=== PATIENT | female | born 1995 | race Caucasian/White ===

== ENCOUNTER → 2019-06-27 | Outpatient (REF) | payer OTHER | LOC: M LAB REF 10:36 | PROVIDERS: ATTEND Physician Assistant | DX: J02.9 Acute pharyngitis, unspecified (principal) ==

== ENCOUNTER → 2019-08-12 | Outpatient (CLI) | payer OTHER ==
[2019-08-12 10:55] LABS: BASO % 0.8 % (0.0-1.0); EOS # 0.2 10^3/uL (0.0-0.5); EOS % 3.9 % (0.0-3.0); HEMATOCRIT 42.2 % (36.0-47.0); HEMOGLOBIN 13.9 g/dl (12.0-15.5); LYMPH # 2.1 10^3/uL (1.5-5.0); LYMPH % 41.9 % (24.0-44.0); MEAN CORPUSCULAR HEMOGLOBIN 29.5 pg (27.0-33.0); MEAN CORPUSCULAR HGB CONC 32.9 g/dl (32.0-36.5); MEAN CORPUSCULAR VOLUME 89.6 fl (80.0-96.0); MONO # 0.4 10^3/uL (0.0-0.8); MONO % 8.3 % (0.0-5.0); NEUTROPHILS # 2.2 10^3/uL (1.5-8.5); NEUTROPHILS % 44.9 % (36.0-66.0); PLATELET COUNT, AUTOMATED 215 10^3/uL (150-450); RED BLOOD COUNT 4.71 10^6/uL (4.00-5.40); WHITE BLOOD COUNT 4.9 10^3/uL (4.0-10.0)
[2019-08-12 11:32] LABS: ALBUMIN 4.2 GM/DL (3.2-5.2); ALT/SGPT 19 U/L (12-78); BILIRUBIN,TOTAL 0.6 MG/DL (0.2-1.0); BLOOD UREA NITROGEN 11 MG/DL (7-18); CALCIUM LEVEL 9.3 MG/DL (8.5-10.1); CARBON DIOXIDE LEVEL 29 MEQ/L (21-32); CHLORIDE LEVEL 109 MEQ/L (98-107); CREATININE FOR GFR 0.86 MG/DL (0.55-1.30); GLOMERULAR FILTRATION RATE > 60.0 (>60); GLUCOSE, FASTING 84 MG/DL (70-100); POTASSIUM SERUM 4.4 MEQ/L (3.5-5.1); SODIUM LEVEL 141 MEQ/L (136-145); TOTAL PROTEIN 7.1 GM/DL (6.4-8.2)
[2019-08-12 11:40] LABS: TOTAL 25(OH) VITAMIN D 23.9 NG/ML (30.0-100.0)
== END ==
LOC: M LAB 10:00
PROVIDERS: ATTEND Physician Assistant
DX: Z13.29 Encounter for screening for other suspected endocrine disorder (principal)

== ENCOUNTER → 2020-01-20 | Outpatient (CLI) | payer OTHER ==
[2020-01-20 11:36] LABS: BASO % 0.2 % (0.0-1.0); EOS # 0.1 10^3/uL (0.0-0.5); EOS % 1.3 % (0.0-3.0); HEMATOCRIT 38.6 % (36.0-47.0); HEMOGLOBIN 13.3 g/dl (12.0-15.5); LYMPH # 1.5 10^3/uL (1.5-5.0); LYMPH % 17.5 % (24.0-44.0); MEAN CORPUSCULAR HEMOGLOBIN 30.4 pg (27.0-33.0); MEAN CORPUSCULAR HGB CONC 34.5 g/dl (32.0-36.5); MEAN CORPUSCULAR VOLUME 88.3 fl (80.0-96.0); MONO # 0.5 10^3/uL (0.0-0.8); MONO % 6.1 % (0.0-5.0); NEUTROPHILS # 6.5 10^3/uL (1.5-8.5); NEUTROPHILS % 74.6 % (36.0-66.0); PLATELET COUNT, AUTOMATED 228 10^3/uL (150-450); RED BLOOD COUNT 4.37 10^6/uL (4.00-5.40); WHITE BLOOD COUNT 8.7 10^3/uL (4.0-10.0)
[2020-01-20 17:09] LABS: CHLAMYDIA DNA AMPLIFICATION NEGATIVE (NEGATIVE); GC DNA AMPLIFICATION NEGATIVE (NEGATIVE)
[2020-01-21 11:00] LABS: HIV 1&2 SCREEN CENTAUR NEGATIVE (NEGATIVE)
== END ==
LOC: M LAB 10:58
PROVIDERS: ATTEND Advanced Practice Midwife
DX: Z34.91 Encounter for supervision of normal pregnancy, unspecified, first trimester (principal)
CPT/HCPCS: 36415; 85025; 86762; 86780; 86803; 86850; 87086; 87340; 87389; 87491; 87591; G0463

== ENCOUNTER → 2020-03-24 | Outpatient (CLI) | payer OTHER ==
--- NOTE | 2020-03-24 12:27 | REP ---
REASON: anatomy. Multiple ultrasonographic images of the gravid uterus show a single living intrauterine gestation in the transverse head to maternal right position. Doppler interrogation of the heart shows a heart rate of 143 beats per minute. The placenta is anterior and not low lying. The cervix measures 3.6 cm in length and is closed. The subjective amniotic fluid volume is within normal limits. The anatomical structures seen to be within normal limits are as follows: Thalami, cavum septum pellucidum, cerebellum, cisterna magna, cerebral ventricles, upper lip, four-chamber heart, left ventricular outflow tract, stomach, cord insertion, three-vessel umbilical cord, kidneys, urinary bladder, spine, and upper and lower extremities. The right ventricular outflow tract was suboptimally visualized. The cord insertion was normal. BPD 4.6 cm = 19 weeks 3 days HC 16.7 cm = 19 weeks 3 days AC 14.0 cm = 19 weeks 3 days FL 3 cm = 19 weeks 2 days The estimated weight is 287 grams, which is at the 48th percentile for a 19 week 2 day gestational age. IMPRESSION: Single living intrauterine gestation, as described above, with an estimated gestational age of 19 weeks 2 days via composite criteria and estimated date of delivery of 08/16/2020 by today's exam. No anomalies were detected, however, I recommend a followup examination to optimally visualize the right ventricular outflow tract.
== END ==
LOC: M WHC 10:00
PROVIDERS: ATTEND Advanced Practice Midwife
DX: Z34.02 Encounter for supervision of normal first pregnancy, second trimester (principal); Z3A.19 19 weeks gestation of pregnancy

== ENCOUNTER → 2020-05-19 | Outpatient (CLI) | payer OTHER ==
[2020-05-19 17:42] LABS: BASO % 0.3 % (0.0-1.0); EOS # 0.2 10^3/uL (0.0-0.5); EOS % 1.2 % (0.0-3.0); HEMATOCRIT 37.1 % (36.0-47.0); HEMOGLOBIN 12.3 g/dl (12.0-15.5); LYMPH # 1.5 10^3/uL (1.5-5.0); LYMPH % 12.6 % (24.0-44.0); MEAN CORPUSCULAR HEMOGLOBIN 31.2 pg (27.0-33.0); MEAN CORPUSCULAR HGB CONC 33.2 g/dl (32.0-36.5); MEAN CORPUSCULAR VOLUME 94.2 fl (80.0-96.0); MONO # 0.8 10^3/uL (0.0-0.8); MONO % 6.6 % (0.0-5.0); NEUTROPHILS # 9.6 10^3/uL (1.5-8.5); NEUTROPHILS % 78.2 % (36.0-66.0); PLATELET COUNT, AUTOMATED 244 10^3/uL (150-450); RED BLOOD COUNT 3.94 10^6/uL (4.00-5.40); WHITE BLOOD COUNT 12.2 10^3/uL (4.0-10.0)
== END ==
LOC: M PLALAB 13:54
PROVIDERS: ATTEND Advanced Practice Midwife
DX: Z34.02 Encounter for supervision of normal first pregnancy, second trimester (principal)
CPT/HCPCS: 36415; 82950; 85025; 86850; 86900; 86901; G0463; J2790

== ENCOUNTER → 2020-06-09 | Outpatient (CLI) | payer OTHER ==
--- NOTE | 2020-06-19 10:23 | REP ---
OBSTETRIC SONOGRAPHY HISTORY: Supervision of . Follow-up anatomy. COMPARISON: 03/24/2020. FINDINGS: Scanning through the gravid uterus demonstrates a single live intrauterine gestation in a cephalic lie. heart rate is recorded at 136 beats per minute. Amniotic fluid is subjectively normal. MYRIAM is normal at 10.5 cm. An anterior grade 1 placenta is seen without evidence of previa. Three-vessel cord is noted. Closed cervical length measures 3.1 cm, viewed transabdominally. Right ventricular outflow tract view was achieved today albeit somewhat difficult to evaluate due to position. Placental cord insertion difficult to evaluate due to presentation. BIOMETRY CHART: BPD 7.6 cm 30 weeks 4 days Head circumference 28.1 cm 30 weeks 6 days Abdominal circumference 26.0 cm 30 weeks 1 day Femur length 5.8 cm 30 weeks 3 days Humeral length 5.3 cm 30 weeks 5 days AC/HC ratio 1.08 Normal Cephalic index 0.75 Normal Estimated weight 1555 grams, 3 pounds 6 ounces 39th percentile for 30 weeks 2 days IMPRESSION: Viable single intrauterine gestation at 30 weeks 4 days by todays composite sonographic criteria. Estimated date of delivery (JUAN CARLOS) by todays sonography 08/14/2020. MTDD
== END ==
LOC: M WHC 13:10
PROVIDERS: ATTEND Obstetrics & Gynecology
DX: Z36.2 Encounter for other antenatal screening follow-up (principal); Z3A.30 30 weeks gestation of pregnancy

== ENCOUNTER → 2020-07-18 | Outpatient (REF) | payer OTHER | LOC: M SFHCWAGY 16:53 | PROVIDERS: ATTEND Obstetrics & Gynecology | DX: Z3A.35 35 weeks gestation of pregnancy (principal) ==

== ENCOUNTER 2020-08-08 19:12 | Inpatient (IN) | payer OTHER ==
[~2020-08-08] VITALS: Ht 170.2 cm; Wt 82.0 kg
[2020-08-08 19:36] VITALS: BP 181/98
[2020-08-08 20:00] VITALS: BP 139/87
[2020-08-08] MEDS ORDERED: PENICILLIN G POTASSIUM IV 5 MU in D5W MINI-BAG PLUS 100 ML IV STA (20:04)
[2020-08-08] MEDS ORDERED: PROMETHAZINE INJ 25 MG/ML VIAL (J2550) IV ONE (20:15)
[2020-08-08] MEDS ORDERED: BUTORPHANOL 2 MG/ML INJ (J0595) IV ONE (20:15)
[2020-08-08 20:16] LABS: HEMATOCRIT 43.3 % (36.0-47.0); HEMOGLOBIN 14.6 g/dl (12.0-15.5); MEAN CORPUSCULAR HEMOGLOBIN 30.6 pg (27.0-33.0); MEAN CORPUSCULAR HGB CONC 33.7 g/dl (32.0-36.5); MEAN CORPUSCULAR VOLUME 90.8 fl (80.0-96.0); PLATELET COUNT, AUTOMATED 297 10^3/uL (150-450); RED BLOOD COUNT 4.77 10^6/uL (4.00-5.40); WHITE BLOOD COUNT 19.8 10^3/uL (4.0-10.0)
--- NOTE | 2020-08-08 20:22 | HPEPDOC ---
Obstetrical History & Physical General Date of Admission Aug 08, 2020 at 19:53 History of Present Illness 24 yo at 38 6/7 weeks by LMP c/w 9 week ultrasound presents with regular contractions for the last 3 hours. They increased in intensity. No loss of fluid. good movement. Chief Complaint: Contractions, term Information Provided By: Patient Age: 24 : 1 Term: 0 Care Care: None Dating Final EDC: Aug 16, 2020 Final EDC by: LMP, 1st trimester (US) Past Medical History Past Obstetrical History : Past Obstetrical History: Primgravida Past Medical History Medical History peptic ulcer disease Anxiety Surgery: Kinards teeth Family History Significant Family History: No pertinent family hx Social History Marital Status: Family situation: Spouse/partner home Psychosocial History: Anxiety * Smoker: non-smoker Allergies Coded Allergies: Augmentin (Verified Allergy, Mild, [place], 08/08/20) Buspirone (Verified Allergy, Mild, dizzy, 08/08/20) Physical Examination Physical Examination GENERAL: Alert and oriented times three. BREAST: . ABDOMEN: Gravid and non-tender to touch. FETUS: Is vertex (VTX) by sterile vaginal examination (SVE), fetus is vertex (VTX) by Norm. HEART RATE: Regular rate and rhythm. LUNGS: Clear to auscultation (CTA). EXTREMITIES: No edema. No clonus. Deep tendon reflexes (DTRs) + . Laboratory Data 24H LABS Laboratory Tests 2 08/08/20 19:59: Serology Scanned Report Hepatitis B Testing 08/08/20 20:00: CBC/BMP Pertinent Laboratoy Data Hepatitis B: Negative Hepatitis C: Negative Rapid Plasma Reagin: Immune Rubella: Immune Group B Streptococcus: Positive Vaginal Examination Dilation: 6 cm Effacement: 100% Station: -1 Cervical Consistency: Soft Cervical Position: Middle Presentation: Cephalic presentation Position: Vertex (occiput) Assessment Variability: Moderate Accelerations: Positive Decelerations: None Tocometer Contractions: Yes Frequency: regular Duration: greater than 60 seconds Strength: palpated as strong Assessment/Plan Assessment Pt is a 24-year-old (G)1 para (P)0 at 38+6 weeks by LMP c/w 9-week ultrasound presents to Labor and Delivery (L&D) in active labor. Plan Admit and orient. 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 Diet: regular. Group B Streptococcus (GBS) positive. Labs and intravenous (IV) per unit protocol. Counseled on Pitocin and induction of labor (IOL). Anticipate normal spontaneous delivery (). C-S as appropriate. ARIADNE GRIFFITH MD Aug 08, 2020 20:22
[2020-08-08] MEDS ORDERED: ACET-897 PO (21:01)
[2020-08-08] MEDS ORDERED: PRENTAB9 PO (21:01)
[2020-08-08] MEDS ORDERED: OXYTOCIN 30 UNITS IN 0.9% NaCl 500ML IV BAG (J2590) As Ordered ONE (22:47)
[2020-08-09] MEDS ORDERED: PENICILLIN G POTASSIUM IV 2.5 MU in IV 1 EA IV SCH (00:30)
[2020-08-09] MEDS ORDERED: DOCUSATE SODIUM 100MG CAPSULE PO PRN (01:15)
[2020-08-09] MEDS ORDERED: OXYTOCIN DRIP 30 UNITS in IV 1 EA IV ONE (01:15)
[2020-08-09] MEDS ORDERED: IBUPROFEN 600MG TAB PO PRN (01:15)
[2020-08-09] MEDS ORDERED: LIDOCAINE 1% MDV 20ML VIAL INFIL ONE (01:15)
[2020-08-09] MEDS ORDERED: METHYLERGONOVINE MALEATE 0.2 MG TAB PO PRN (01:15)
[2020-08-09] MEDS ORDERED: ONDANSETRON 4MG/2ML VIAL IV PRN (01:15)
[2020-08-09] MEDS ORDERED: MEASLES,MUMPS,RUBELLA VACCINE INJ (MMR-II) (90707) SC SCH (01:15)
[2020-08-09] MEDS ORDERED: RHOGAM 300 MCG (1500 IU) INJ (J2790) IM SCH (01:15)
[2020-08-09] MEDS ORDERED: BENZOCAINE 20% HEMORRHOIDAL OINTMENT 28GM TUBE TOP PRN (01:15)
[2020-08-09] MEDS ORDERED: ACETAMINOPHEN 500 MG TAB PO PRN (01:15)
--- NOTE | 2020-08-09 01:22 | DNPDOC ---
[facility] Delivery Note Delivery Note DATE OF DELIVERY: August 09, 2020 PREDELIVERY DIAGNOSIS: 38-6/7 weeks' gestation and labor. POST DELIVERY DIAGNOSIS: Delivered. PROCEDURE: Spontaneous vaginal delivery. TESTER WAFER SUBSTRATE: Dr. Ariadne Griffith MD ANESTHESIA: none. ESTIMATED BLOOD LOSS: 300 mL. FINDINGS: 7 pound 15 ounce male , Score 8/9, nuchal cord times 1. Velamentous cord insertion. DELIVERY SUMMARY: Patient is a 24-year-old 1 now para 2 who was admitted to labor. She received no augmentation. She had no anesthesia for delivery. After a 1 hour 25 minute second stage she had a spontaneous vaginal delivery. Midline episiotomy performed due due arrest of descent at a narrow introitus. There was also persistent bradycardia present. Nuchal cord x 1 delivered through. Infant handed to mother. Cord doubly clamped and cut. Placenta delivered spontaneously and appeared intact. Pt received IV Pitocin immediately after delivery of placenta. Second degree episiotomy repaired under local anesthesia in the usual fashion. Placenta sent to pathology for velamentous cord insertion. Sponge and needle counts correct. ARIADNE GRIFFITH MD Aug 09, 2020 01:22
[2020-08-09 03:00] VITALS: BP 137/83
[2020-08-09 06:00] VITALS: BP 130/64
[2020-08-09] MEDS: FLUoxetine 20 MG CAP PO SCH (09:05)
[2020-08-09] MEDS: LORATADINE 10 MG TAB PO SCH (09:05)
[2020-08-09] MEDS: PRENATAL VITAMINS CHEWABLE TABLET PO SCH (09:05)
[2020-08-09] MEDS: ACETAMINOPHEN TAB 650MG DOSE (2X325MG) PO PRN ×2 (09:08→19:39)
[2020-08-09 18:00] VITALS: BP 134/76
[2020-08-10] MEDS: IBUPROFEN 800 MG TAB PO PRN ×2 (07:36→17:23)
[2020-08-10 09:00] VITALS: BP 134/76
[2020-08-10] MEDS: PRENATAL VITAMINS CHEWABLE TABLET PO SCH (09:15)
[2020-08-10] MEDS: FLUoxetine 20 MG CAP PO SCH (09:15)
[2020-08-10] MEDS: LORATADINE 10 MG TAB PO SCH (09:15)
[2020-08-10 10:55] VITALS: BP 123/65
[2020-08-10 17:39] VITALS: BP 139/81
[2020-08-11 06:00] VITALS: BP 118/78
[2020-08-11] MEDS: LORATADINE 10 MG TAB PO SCH (08:08)
[2020-08-11] MEDS: FLUoxetine 20 MG CAP PO SCH (08:08)
[2020-08-11] MEDS: PRENATAL VITAMINS CHEWABLE TABLET PO SCH (08:08)
[2020-08-11] MEDS: IBUPROFEN 800 MG TAB PO PRN (08:08)
== END 2020-08-11 12:00 | disposition home or self-care (01) | DRG 807 ==
LOC: M LDO 19:12 → M LDI 19:53 → M OBS 08-09 02:57
PROVIDERS: ADMIT Specialist; ATTEND Specialist
PROC: 10E0XZZ Delivery of Products of Conception, External Approach (ICD-10-PCS; principal; 2020-08-09)
PROC: 0KQM0ZZ Repair Perineum Muscle, Open Approach (ICD-10-PCS; 2020-08-09)
PROC: 0W8NXZZ Division of Female Perineum, External Approach (ICD-10-PCS; 2020-08-09)
DX: O99.824 Streptococcus B carrier state complicating childbirth (principal); Z37.0 Single live birth; Z3A.38 38 weeks gestation of pregnancy; O76 Abnormality in fetal heart rate and rhythm complicating labor and delivery; O64.0XX0 Obstructed labor due to incomplete rotation of fetal head, not applicable or unspecified; O69.82X0 Labor and delivery complicated by other cord entanglement, without compression, not applicable or unspecified; O69.89X0 Labor and delivery complicated by other cord complications, not applicable or unspecified; O70.1 Second degree perineal laceration during delivery

== ENCOUNTER 2020-08-17 20:25 | Emergency (ER) | payer OTHER ==
[~2020-08-17] VITALS: Ht 170.2 cm; Wt 68.5 kg
[~2020-08-17 20:25] MED LIST: ACET-897 PO; PRENTAB9 PO
[2020-08-17] MEDS ORDERED: FLUO20CA22 (20:38)
[2020-08-17] MEDS ORDERED: NS 1,000 ML IV ONE (21:15)
[2020-08-17] MEDS ORDERED: ACETAMINOPHEN 500 MG TAB PO ONE (21:15)
[2020-08-17 21:40] LABS: BASO # 0.1 10^3/uL (0.0-0.2); BASO % 0.3 % (0.0-1.0); EOS # 0.1 10^3/uL (0.0-0.5); EOS % 0.5 % (0.0-3.0); HEMATOCRIT 43.2 % (36.0-47.0); HEMOGLOBIN 13.7 g/dl (12.0-15.5); LYMPH # 1.3 10^3/uL (1.5-5.0); LYMPH % 7.3 % (24.0-44.0); MEAN CORPUSCULAR HEMOGLOBIN 28.8 pg (27.0-33.0); MEAN CORPUSCULAR HGB CONC 31.7 g/dl (32.0-36.5); MEAN CORPUSCULAR VOLUME 90.9 fl (80.0-96.0); MONO # 0.9 10^3/uL (0.0-0.8); MONO % 5.1 % (0.0-5.0); NEUTROPHILS # 15.3 10^3/uL (1.5-8.5); NEUTROPHILS % 86.3 % (36.0-66.0); PLATELET COUNT, AUTOMATED 337 10^3/uL (150-450); RED BLOOD COUNT 4.75 10^6/uL (4.00-5.40); WHITE BLOOD COUNT 17.7 10^3/uL (4.0-10.0)
[2020-08-17 22:17] LABS: ALBUMIN 3.4 GM/DL (3.2-5.2); ALT/SGPT 33 U/L (12-78); AMYLASE 57 U/L (25-115); BILIRUBIN,DIRECT < 0.1 MG/DL (0.0-0.2); BILIRUBIN,TOTAL 0.3 MG/DL (0.2-1.0); BLOOD UREA NITROGEN 15 MG/DL (7-18); CALCIUM LEVEL 11.3 MG/DL (8.5-10.1); CARBON DIOXIDE LEVEL 28 MEQ/L (21-32); CHLORIDE LEVEL 102 MEQ/L (98-107); CREATININE FOR GFR 1.01 MG/DL (0.55-1.30); FREE T4 1.04 NG/DL (0.76-1.46); GLOMERULAR FILTRATION RATE > 60.0 (>60); GLUCOSE, FASTING 110 MG/DL (70-100); LIPASE 95 U/L (73-393); SODIUM LEVEL 137 MEQ/L (136-145); THYROID STIMULATING HORMONE 0.398 uIU/ML (0.358-3.740); TOTAL PROTEIN 7.5 GM/DL (6.4-8.2)
--- NOTE | 2020-08-17 22:17 | REPVR ---
PROCEDURE INFORMATION: Exam: US Nonobstetric Pelvis; Complete Exam date and time: 08/17/2020 10:02 PM Age: 24 years old Clinical indication: Other: Fever and pain, 8 days pp; Additional info: 8 days post vag deliver, fevers, lower abd pain TECHNIQUE: Imaging protocol: Transabdominal pelvic nonobstetric ultrasound. Complete exam. Real time ultrasound with image documentation. COMPARISON: US OBS FOLLOW UP OR REPEAT 06/09/2020 1:16 PM FINDINGS: Uterus/cervix: 11.9 x 7.9 x 9.8 cm. Small amount of complex endometrial fluid without associated vascularity. Right ovary: Not identified. No adnexal mass. Left ovary: 2.5 x 2.8 x 1.6 cm. No mass. Normal blood flow. Intraperitoneal space: No intraperitoneal free fluid. Urinary bladder: Normal. IMPRESSION: Enlarged, uterus. Small amount of complex endometrial fluid without associated vascularity, likely blood products. No convincing evidence of endometritis or retained products of conception. Electronically signed by: Olaf Anderson On 08/17/2020 22:17:38 PM
[2020-08-17] MEDS ORDERED: AMPICILLIN SOD/SULBACTAM SOD 3 GM in D5W MINI-BAG PLUS 100 ML IV ONE (23:15)
[2020-08-17] MEDS ORDERED: DICL500C PO (23:57)
[2020-08-18 00:33] VITALS: BP 119/74
== END 2020-08-18 00:37 | disposition home or self-care (01) ==
LOC: M ED 20:25
DX: O99.893 Other specified diseases and conditions complicating puerperium (principal); R50.9 Fever, unspecified; M54.5 Low back pain; O91.22 Nonpurulent mastitis associated with the puerperium; Z88.0 Allergy status to penicillin; Z88.8 Allergy status to other drugs, medicaments and biological substances; Z79.899 Other long term (current) drug therapy